=== PATIENT | male | born 1945 | race Caucasian/White ===

== ENCOUNTER 2018-11-30 07:33 | Day surgery (SDC) | payer MEDICARE, MEDICAID ==
[2018-11-29 14:05] VITALS: BMI 17.8
--- NOTE | 2018-11-30 01:49 | HP ---
HISTORY OF PRESENT ILLNESS: This is a 73-year-old fragile looking male, referred to me by Dr. Shah for evaluation of dysphagia. The patient has had dysphagia for several years. The dysphagia occurs mostly with movement of meats and bread. He had no difficulty with drinking liquids. The symptoms are chronic in nature and occurring more frequently. There is no history of odynophagia. He has lost weight in the past, but recently dysphagia. ALLERGIES: PENICILLIN. SOCIAL HISTORY: The patient cigarettes per day. Alcohol none. MEDICAL ILLNESS: 1. COPD. 2. Prostatic hypertrophy. 3. Broken jaw x2 in the past. 4. Appendectomy. 5. Ataxia. PHYSICAL EXAMINATION: GENERAL: He is very thin built, appears very fragile. VITAL SIGNS: Pulse is 72, blood pressure 100/70. HEENT: Conjunctivae clear. CARDIOVASCULAR SYSTEM: First and second heart sounds normal. LUNGS: Clear to auscultation. ABDOMEN: Soft. No organomegaly. No tenderness. No masses. ADMITTING DIAGNOSIS: A 73-year-old male with dysphagia, undergoing EGD. Job ID: [id number]
--- NOTE | 2018-11-30 16:05 | OP ---
DATE OF PROCEDURE: 11/30/2018 OPERATIVE PROCEDURE: Esophagogastroscopy with esophageal dilation. PREOPERATIVE DIAGNOSES: A 73-year-old male with history of dysphagia for 10+ years. The patient has been on pureed diet, liquid diet over the last 10 years. The patient's symptoms are getting worse and he he wakes in the morning with spitting of large amount of mucus. The patient is undergoing EGD. POSTOPERATIVE DIAGNOSES: 1. 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 2. Grade 4 esophagitis with multiple ulcerations. 3. The patient had another stricture below the above-mentioned stricture. DESCRIPTION OF PROCEDURE: The patient was placed on his left lateral position and was given sedation by Anesthesia Department. A Pentax video gastroscope under direct vision was advanced down the oropharynx, past the GE junction the patient was found to have very tight stricture the patient had [place] grade 4 esophagitis. very thick and fibrotic. A Bard balloon size 12-15 mm passed through the and placed over the strictured area and inflated to stage 1 for 2 minutes and stage 4 for 2 minutes. Following the dilation, the lumen appeared to open past the area. However, he has another stricture below the above-mentioned stricture. The same procedure repeated again one more time. There was mild oozing of blood noted. It was decided not to pursue any more dilation as the patient appears to have a very tight fibrotic stricture. PLAN: 1. Start the patient on omeprazole 40 once a day. 2. Continue to stay on full liquid diet and pureed diet. 3. Repeat EGD and dilation in two weeks. I did speak to his sister and I explained her about the above information. She is advised to call if he does have any chest discomfort, fever, or hematemesis. Job ID: [id number]
[2018-11-30] MEDS ORDERED: Lidocaine 1% PF 5 ML VIAL ONE (16:31)
[2018-11-30] MEDS ORDERED: PROPOFOL 200 MG/20 ML VIAL ONE (16:31)
== END 2018-11-30 11:50 | disposition home or self-care (01) ==
LOC: SDC 07:33
PROVIDERS: ATTEND Internal Medicine Gastroenterology
PROC: 0D758ZZ Dilation of Esophagus, Via Natural or Artificial Opening Endoscopic (ICD-10-PCS; principal; 2018-11-30)
DX: K22.2 Esophageal obstruction (principal); K20.9 Esophagitis, unspecified; J44.9 Chronic obstructive pulmonary disease, unspecified; F17.210 Nicotine dependence, cigarettes, uncomplicated; N40.0 Benign prostatic hyperplasia without lower urinary tract symptoms; Z88.0 Allergy status to penicillin